=== PATIENT | female | born 1965 | race Caucasian/White ===

== ENCOUNTER 2020-05-28 13:13 | Emergency (ER) | payer OTHER, SELFPAY ==
--- NOTE | 2020-05-28 13:18 | ED.BACK ---
HPI - Back Pain/Injury General Chief Complaint: Back Pain/Injury Stated Complaint: back pain Time Seen by Provider: 05/28/20 13:45 Source: patient and RN notes reviewed Mode of arrival: ambulatory Limitations: no limitations History of Present Illness HPI Narrative: 54-year-old female presents with concern for back pain. Reports mid low back pain that started Saturday when she was pulling weeds. Reports she bent over to pull away and felt a pain in her low back. She denies any direct injury, trauma. Denies loss of bowel or bladder function, perianal anesthesia, weakness in any extremity, fever. Reports she has been using Aleve and pain patches. Reports she took her mom's leftover muscle relaxers with little relief. MD elicited complaint: back pain Related Data Home Medications Medication Instructions Recorded Confirmed alprazolam 0.25 mg PO DAILY 05/28/20 05/28/20 atorvastatin 40 mg PO DAILY 05/28/20 05/28/20 hydrochlorothiazide 12.5 mg PO DAILY 05/28/20 05/28/20 varenicline [Chantix Continuing 1 mg PO DIRECTED 05/28/20 05/28/20 Month Box] varenicline [Chantix Starting 1 ea PO DIRECTED 05/28/20 05/28/20 Month Box] Allergies Allergy/AdvReac Type Severity Reaction Status Date / Time cetirizine Allergy Unknown Swelling Verified 05/28/20 13:16 ZPAK Allergy Unknown BODY Uncoded 05/28/20 13:16 SWELLING Review of Systems Review of Systems: Narrative: CONSTITUTIONAL: Denies malaise, chills, sweats, or fever. CARDIOVASCULAR: Denies chest pain, palpitations, or edema. RESPIRATORY: Denies cough or dyspnea. GASTROINTESTINAL: Denies abdominal pain, nausea, vomiting, diarrhea GENITOURINARY: Denies dysuria, hematuria SKIN: Denies bruising, redness MUSCULOSKELETAL: Reports low back pain radiating to the right buttock NEUROLOGIC: Denies numbness, weakness, or headache. All systems reviewed & are unremarkable except as noted in HPI and below PMFSH Comments At time of signature, agree with nursing past medical, surgical, social and family history. There is no relevant family history pertinent to the presenting complaint Exam Narrative: Exam Narrative: GENERAL: Well-appearing, well-nourished, and in no acute distress. HEAD: Normocephalic, atraumatic. EYES: PERRLA and EOMI. NECK: Supple. No lymphadenopathy. CHEST: Clear to auscultation. No respiratory distress. HEART: Regular rate and rhythm. Distal pulses palpable and equal, cap refill <3 seconds ABDOMEN: Soft, nontender, nondistended, normal active bowel sounds, no palpable or pulsatile masses. No CVA tenderness MUSCULOSKELETAL: Normal range of motion and strength in all extremities; 5/5 strength with hip flexion and extension, dorsiflexion and extension, knee flexion and extension, plantar flexion and extension. Normal sensation in dermatomal distributions with sensitivity to light touch and pain. No midline back tenderness to palpation. No paraspinal tenderness. Transfers from lying to sitting to standing. SKIN: Warm, dry, no rash. No ecchymosis, erythema, open wounds to back. NEURO: No focal deficits. Alert and oriented x3. Reflexes intact. Normal gait. PSYCH: Normal mood and affect Course Course Emergency Course: Patient is aware of diagnosis, understands and agrees to treatment plan. Anticipatory guidance given. Patient agrees to follow-up as directed and is aware of reasons to seek care at the emergency department. Portions of this record may have been created with voice recognition software Vital Signs Vital signs: Vital Signs Temperature 99.0 F 05/28/20 13:27 Pulse Rate 80 05/28/20 13:27 Respiratory Rate 16 05/28/20 13:27 Blood Pressure 150/93 H 05/28/20 13:27 Pulse Oximetry 99 05/28/20 13:27 Temperature 99.0 F 05/28/20 13:27 Pulse Rate 80 05/28/20 13:27 Respiratory Rate 16 05/28/20 13:27 Blood Pressure 150/93 H 05/28/20 13:27 Pulse Oximetry 99 05/28/20 13:27 Reviewed. MDM - Back Pain/Injury MDM Narrative Me
[2020-05-28 13:27] VITALS: BP 150/93; PULSE 80; RESP 16; TEMP 37.2; O2SAT 99
== END 2020-05-28 14:01 | disposition home or self-care (01) ==
PROVIDERS: Emergency Provider Nurse Practitioner
DX: M54.5 Low back pain (principal); T14.8XXA Other injury of unspecified body region, initial encounter; W57.XXXA Bitten or stung by nonvenomous insect and other nonvenomous arthropods, initial encounter
CPT/HCPCS: 99213; G0463

== ENCOUNTER 2021-02-25 13:20 | Emergency (ER) | payer OTHER, SELFPAY ==
--- NOTE | ~2021-02-25 | XR_ITS ---
XR hand RT min 3V DATE: 02/25/2021 14:20 INDICATION: Third digit laceration, injury TECHNIQUE: 3 views of right hand COMPARISON: None FINDINGS: There is a linear nondisplaced fracture of the tuft of the distal phalanx of the third digi t. There is soft tissue irregularity of the distal third digit consistent with clinically reported so ft tissue laceration. No radiopaque foreign body is detected. No other fracture or dislocation. No periosteal reaction or bone destruction. Osteoarthritic changes are noted at the first carpometacarpal and some interphalangeal joints primari ly. IMPRESSION: Distal third digit soft tissue laceration and nondisplaced tuft fracture of distal phalan x of third digit Reviewed, dictated and finalized at location A. IMPRESSION: Distal third digit soft tissue laceration and nondisplaced tuft fra cture of distal phalanx of third digit
[2021-02-25 13:25] VITALS: BP 149/87; PULSE 84; RESP 16; TEMP 36.3; O2SAT 99
[2021-02-25] MEDS: TETANUS,DIPHTHERIA,AC PERTUSSIS ADULT (0.5 ML) BOOSTRIX IM (14:47)
--- NOTE | 2021-02-25 14:49 | ED.UPPEXIN ---
HPI - Extremity Injury (Upper) General Chief Complaint: Extremity Injury, Upper Stated Complaint: right middle finger injury Time Seen by Provider: 02/25/21 13:51 Source: patient Mode of arrival: ambulatory Limitations: no limitations History of Present Illness HPI narrative: 55-year-old female Patient made a ill fated decision to try to steady a tree that her friend was trying to knock down by swinging the bucket of a bobcat at unfortunately her right middle fingertip came between the bucket and the bark She has a laceration to the distal phalanx but the nail is fine and she has full range of motion in both flexion and extension Related Data Home Medications Medication Instructions Recorded Confirmed alprazolam 0.25 mg PO DAILY 05/28/20 05/28/20 atorvastatin 40 mg PO DAILY 05/28/20 05/28/20 amlodipine 02/25/21 Allergies Allergy/AdvReac Type Severity Reaction Status Date / Time cetirizine Allergy Unknown Swelling Verified 02/25/21 13:42 azithromycin Allergy Swelling Verified 02/25/21 13:42 hydrochlorothiazide Allergy Rash Verified 02/25/21 13:44 Review of Systems Musculoskeletal: Musculoskeletal: Reports arthralgias and Reports joint swelling Integumentary/Breasts: Skin/Breast: Denies erythema and Denies rash Neurologic: Denies focal weakness and Denies numbness Exam Const: General: healthy appearing and alert Orientation/consciousness: patient oriented x3 HENMT: Head: normal to inspection, no contusions and no hematomas Eyes: Conjunctivae: conjunctivae normal EOM: EOMs intact bilaterally Resp: Effort & Inspection: normal respiratory effort and not labored Neuro: General: patient oriented x3 Speech: normal speech Extrem: Other: Right index finger is the only site of injury, there is a distally based flap with the tip just distal to the DIP and the sides approximately 1.5 cm, there is some duskiness to the more proximal half of the flap Course Vital Signs Vital signs: Vital Signs Temperature 36.3 C L 02/25/21 13:25 Pulse Rate 84 02/25/21 13:25 Respiratory Rate 16 02/25/21 13:25 Blood Pressure 149/87 H 02/25/21 13:25 Pulse Oximetry 99 02/25/21 13:25 Temperature 36.4 C L 02/25/21 15:38 Pulse Rate 66 06/19/21 15:38 Respiratory Rate 18 02/25/21 15:38 Blood Pressure 167/75 H 02/25/21 15:38 Pulse Oximetry 100 02/25/21 15:38 Procedures Laceration Laceration 1: Date: 02/25/21 Time: 15:51 Site: hand Side (If applicable): right Size (cm): 3 Description: flap (distal basew, dusky tip) Depth: simple, single layer Local Anesthetic: lidocaine 1% Amount of anesthesia used (mL): 1 Pre-repair: wound explored, irrigated, irrigated extensively, minor debridement and other (repeatedly irrigated until no further fb visible) ====== Skin Level ====== Skin layer closed with: nylon Size (cm): 5-0 Number of sutures: 9 Technique: simple, interrupted ====== Subcutaneous Layer ====== ====== Muscle Layer ====== ====== Tendon Layer ====== MDM - Extremity Injury (Upper) Imaging Data Radiologist's impression: ITS Impressions Hand X-Ray 02/25/21 14:38 IMPRESSION: Distal third digit soft tissue laceration and nondisplaced tuft fracture of distal phalanx of third digit Discharge Plan Discharge Clinical Impression: Finger laceration, Open fracture of distal phalangeal tuft with routine healing Patient Disposition: Home, Self-Care Condition: Stable Instructions: Antibiotic Form, Care For Your Stitches (ED) Additional Instructions: Wound check at your scheduled appointment on Saturday, sutures out in 10 to 14 days, leave dressing on for 24 hours, after that apply a small amount of antibiotic ointment twice a day Prescriptions: New cephalexin 500 mg capsule 500 mg PO Q6H 7 Days Qty: 28 RF: 0 No Action atorvastatin 40 mg tablet 40
--- NOTE | 2021-02-25 14:58 | PC.NURSE ---
Suture setup in room for the EDP at this time.
[2021-02-25] MEDS: ceFAZolin SODIUM 1 GM VIAL IM (15:33)
[2021-02-25 15:38] VITALS: BP 167/75; PULSE 66; RESP 18; TEMP 36.4; O2SAT 100
[2021-02-25 17:30] VITALS: BP 156/72; PULSE 64; RESP 18; TEMP 36.7; O2SAT 100
== END 2021-02-25 17:39 | disposition home or self-care (01) ==
PROVIDERS: Emergency Provider Emergency Medicine; PCP Family Medicine
DX: S62.662B Nondisplaced fracture of distal phalanx of right middle finger, initial encounter for open fracture (principal); Z23 Encounter for immunization; W31.89XA Contact with other specified machinery, initial encounter
CPT/HCPCS: 12002; 73130; 90471; 90715; 96372; 99283; J0690